=== PATIENT | female | born 1995 | race Caucasian/White ===

== ENCOUNTER 2018-12-23 12:56 | Emergency (ER) | payer OTHER ==
[~2018-12-23] VITALS: Ht 162.6 cm; Wt 131.5 kg
[~2018-12-23 12:56] MED LIST: DOXYCYCLINE HY100 MG PO
[2018-12-23] MEDS ORDERED: HYDROCODONE/APAP 10MG-325MG TAB PO NR (13:30)
[2018-12-23] MEDS ORDERED: BENZOCAINE 20% SPR 60 ML CAN MT ONE (13:45)
--- NOTE | 2018-12-23 15:02 | Diagnostic Imaging Report ---
Exam: Left ankle radiographs-3 views Clinical History: Status post trauma, evaluate for fracture. Comparison: None. Findings: No evidence of acute fracture, malalignment, or soft tissue abnormality. Ankle mortise is preserved. Impression: No acute radiographic abnormality. Signed by: Dr. Mallorie Givens MD on 12/23/2018 2:59 PM
--- NOTE | 2018-12-23 15:03 | Diagnostic Imaging Report ---
Exam: Left elbow radiographs-4 views History: Evaluate for fracture. Comparison: None. Findings: No evidence of acute fracture, malalignment, or soft tissue abnormality. No joint effusion. Impression: No acute radiographic abnormality. Signed by: Dr. Mallorie Givens MD on 12/23/2018 3:00 PM
--- NOTE | 2018-12-23 15:05 | Diagnostic Imaging Report ---
EXAMINATION: CHEST 2 VIEWS INDICATION: Status post trauma. COMPARISON: None FINDINGS: TUBES and LINES: None. LUNGS: Lungs are not well inflated. There is no evidence of pneumonia or pulmonary edema. PLEURA: No pleural effusion or pneumothorax. HEART AND MEDIASTINUM: The cardiomediastinal silhouette is unremarkable. BONES AND SOFT TISSUES: No acute osseous abnormality. UPPER ABDOMEN: No free air under the diaphragm. IMPRESSION: No acute radiographic abnormality. Signed by: Dr. Mallorie Givens MD on 12/23/2018 3:01 PM
[2018-12-24] MEDS ORDERED: BACITRACIN ZINC 15 GM OINT TOP SCH (09:00)
== END 2018-12-23 15:59 | disposition home or self-care (01) ==
LOC: ER 12:56
DX: S50.02XA Contusion of left elbow, initial encounter (principal); S50.312A Abrasion of left elbow, initial encounter; S90.02XA Contusion of left ankle, initial encounter; S90.512A Abrasion, left ankle, initial encounter; S20.219A Contusion of unspecified front wall of thorax, initial encounter; W01.0XXA Fall on same level from slipping, tripping and stumbling without subsequent striking against object, initial encounter; Y92.89 Other specified places as the place of occurrence of the external cause
CPT/HCPCS: 71046; 99284

== ENCOUNTER 2021-12-16 08:46 | Emergency (ER) | payer OTHER ==
[~2021-12-16] VITALS: Ht 162.6 cm; Wt 131.5 kg
[2021-12-16] MEDS ORDERED: DEXAMETHASONE SOD PHOS 10 MG/1 ML VIAL IM ONE (09:00)
[2021-12-16] MEDS ORDERED: TYLENOL EXTRA500 MG PO (09:32)
[2021-12-16] MEDS ORDERED: IBUPROFEN600 MG PO (09:32)
== END 2021-12-16 10:02 | disposition home or self-care (01) ==
LOC: ER 09:00
DX: J02.9 Acute pharyngitis, unspecified (principal); F17.200 Nicotine dependence, unspecified, uncomplicated
CPT/HCPCS: 83518; 87070; 99284; J1100

== ENCOUNTER 2022-03-02 22:09 | Emergency (ER) | payer OTHER ==
[~2022-03-02] VITALS: Ht 162.6 cm; Wt 131.5 kg
[~2022-03-02 22:09] MED LIST changes: +IBUPROFEN600 MG PO; +TYLENOL EXTRA500 MG PO
[2022-03-02] MEDS ORDERED: CEFTRIAXONE 1 GM VIAL IM ONE (23:30)
[2022-03-02] MEDS ORDERED: METRONIDAZOLE 500 MG TAB PO ONE (23:30)
[2022-03-02 23:32] LABS: CLARITY,URINE SL CLOUDY (CLEAR); COLOR,URINE YELLOW (YELLOW); KETONES,URINE NEGATIVE (NEGATIVE); LEUKOCYTE ESTERASE ,URINE NEGATIVE (NEGATIVE); NITRITE,URINE NEGATIVE (NEGATIVE); PROTEIN,URINE DIPSTICK NEGATIVE (NEGATIVE); URINE UROBILINOGEN 0.2 mg/dL (0.2 - 1)
[2022-03-02 23:39] LABS: BACTERIA,URINE FEW /HPF; EPITHELIAL CELLS,URINE FEW /LPF; RBC,URINE 0-5 /HPF (0-5); WBC,URINE (MAN) 0-5 /HPF (0-5)
[2022-03-02 23:40] LABS: MUCUS,URINE MODERATE (RARE)
[2022-03-02] MEDS ORDERED: LIDOCAINE HCL 1% 2 ML AMP ONE (23:47)
[2022-03-02] MEDS ORDERED: DOXYCYCLINE HY100 MG PO (23:52)
== END 2022-03-03 00:01 | disposition home or self-care (01) ==
LOC: ER 22:25
DX: N90.7 Vulvar cyst (principal)
CPT/HCPCS: 81001; 81025; 99283; J0696; J2001